=== PATIENT | male | born 1980 | race Caucasian/White ===

== ENCOUNTER 2017-07-28 14:18 | Emergency (ER) | payer SELFPAY ==
[~2017-07-28] VITALS: Ht 180.3 cm; Wt 97.5 kg
[2017-07-28] MEDS ORDERED: NKM (14:39)
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
[2017-07-28 15:05] VITALS: BP 127/82
== END 2017-07-28 15:14 | disposition home or self-care (01) ==
LOC: EMR 15:05
DX: S20.412A Abrasion of left back wall of thorax, initial encounter (principal); S20.411A Abrasion of right back wall of thorax, initial encounter; S20.312A Abrasion of left front wall of thorax, initial encounter; S00.81XA Abrasion of other part of head, initial encounter; Y04.0XXA Assault by unarmed brawl or fight, initial encounter; Y92.9 Unspecified place or not applicable
CPT/HCPCS: 99282